=== PATIENT | male | born 1955 | race Caucasian/White ===

== ENCOUNTER 2024-11-06 11:15 | Day surgery (SDC) | payer MEDICARE, OTHER, SELFPAY ==
[2024-11-06] VITALS (10 sets, daily range): BP systolic 105–124; BP diastolic 63–85
[2024-11-06] MEDS: LOW STRENGTH ASPIRIN 324 MG PO (12:09)
[2024-11-06] MEDS: NSS 263 ML IV (12:11)
--- NOTE | 2024-11-06 15:54 | ITS.CL.CATH ---
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
Cardiac Catheterization
Procedure Report:
CARDIAC CATHETERIZATION REPORT
Date of Procedure: 11/06/2024
Referring: Claire Leo M.D.
INDICATION: Abnormal stress test, recent diagnosis of colon cancer.
PROCEDURE:
1. Left heart catheterization.
2. Coronary angiography.
A total of 32 minutes of procedural/moderate sedation was utilized. An independent emergency medical dispatcher was present to assist with and help manage the patient's level of consciousness and physiologic status.
ACCESS:
1. 6 [place] right radial artery using a modified Seldinger technique.
CATHETERS:
1. 5 [place] JR4.
2. 5 [place] JL3.5.
3. 5 [place] angled pigtail.
HEMODYNAMIC DATA
Weight (kg): 87.8
AO (s/d/x, mmHg): 91/63/73
LV (s/x mmHg): 91/10
LEFT VENTRICULOGRAPHY: Performed in an MALCOLM projection. The ventricle is moderately dilated. There is severe hypokinesis of the inferior wall. There is mild global hypokinesis throughout the remainder of the myocardium. Left ventricular ejection
fraction estimated at 30�35%. There is no mitral valve regurgitation. There is no aortic valve insufficiency. The aortic root, visualized ascending and descending aorta appear normal. There is some tortuosity of the descending thoracic aorta.
CORONARY ANGIOGRAPHY
Dominance: Right.
Left Main: Normal size, trifurcating vessel. There is no coronary artery disease.
LAD: Normal size vessel giving rise to 1 significant diagonal. There is a 70% lesion in the mid LAD.
Ramus: Small to medium size vessel. There is a 70% lesion in the ostium of the vessel, shared with the circumflex.
Circumflex: Small to medium size vessel giving rise to 1 significant marginal. There is a 70% lesion in the ostium of the vessel, shared with the ramus intermedius.
RCA: Dominant vessel that is chronically totally occluded at its origin. The vessel is diffusely diseased and supplied by faint collaterals to the RPDA from the circumflex and apical LAD.
INTERVENTION(S)
None.
Closure Device: Vascular band.
Radiation (mGy): 313.24
DAP (cm2.Gy): 21.1146
Fluoroscopy time (minutes): 4.3
CONCLUSIONS
1. 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
2. Normal filling pressures (LVEDP = 10 mmHg at 87.8 kg).
RECOMMENDATIONS:
1. Expectant management after cardiac catheterization via right radial approach.
2. Limited weight bearing on the right wrist for one week.
3. OMT/GDMT as hemodynamics will tolerate.
4. After thoughtful consideration given the complexity of the potential intervention as well as the recent diagnosis of colon cancer with likely upcoming surgery and the relative absence of symptoms, the decision was made to manage this patient
medically. I will review the angiogram with CT surgery to consider revascularization if necessary as any intervention on the circumflex and ramus would be very technically complicated, likely requiring simultaneous kissing stents.
5. Continue aggressive secondary prevention with high-dose, high potency statin. Goal LDL <55.
6. 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
Copy to: Claire Leo M.D., Jyoti Aldridge M.D.
Waylon Enrique, , FACC, FACP
== END 2024-11-06 16:37 | disposition home or self-care (01) ==
LOC: CATH 11:15
PROVIDERS: ATTENDING PHYSICIAN Internal Medicine Cardiovascular Disease; FAMILY PHYSICIAN Family Medicine; OTHER PHYSICIAN Internal Medicine Cardiovascular Disease
DX: R94.39 Abnormal result of other cardiovascular function study (principal); Z85.038 Personal history of other malignant neoplasm of large intestine; I10 Essential (primary) hypertension; I45.2 Bifascicular block; E78.5 Hyperlipidemia, unspecified; E11.9 Type 2 diabetes mellitus without complications; Z85.72 Personal history of non-Hodgkin lymphomas; Z79.82 Long term (current) use of aspirin
CPT/HCPCS: 99152; 99153; C1894; 93005; 93458; Q9967